=== PATIENT | female | born 1995 | race Caucasian/White ===

== ENCOUNTER 2023-11-30 09:45 | Emergency (ER) | payer SELFPAY ==
--- NOTE | 2023-11-30 10:00 | HMH.EDGENADL ---
Discharge Plan Disposition Patient Disposition: Home, Self-Care Condition: Good Prescriptions Prescriptions: New oxycodone-acetaminophen [Percocet] 5-325 mg tablet 1 tab PO Q6H PRN (Reason: pain) 3 Days Qty: 12 0RF ondansetron 4 mg tablet,disintegrating 4 mg PO Q6H PRN (Reason: nausea and vomiting) 4 Days Qty: 16 0RF Referrals Follow up/Referrals: Pk Ervin MD [Staff Physician] - See instructions (Patient to follow-up on 12/07/2023) Evan Lugo [Primary Care Provider] - See instructions Activity Restrictions/Add. Instructions Additional Instructions/Restrictions: You have been evaluated in the ED for your complaints. You may follow-up with your PCP in the next 3 to 5 days. Please return to ED for any new or worsening symptoms. You will follow-up with general surgery a week from today on 12/07/2023. I have written for Percocet to assist with pain at home and Zofran for nausea and vomiting however if your symptoms worsen please return to ED for further management. Please eat a bland diet over the next several days. Clinical Impressions Clinical Impression: Cholelithiasis Instructions Patient Instructions: DI for Acute Abdominal Pain Discharge ED Provider: Ramez Marvin Adult HPI General Chief complaint: Abdominal Pain Stated complaint: gall bladder attack Time Seen by Provider: 11/30/23 09:59 History of Present Illness HPI narrative: 28-year-old female with reported medical history significant for gallbladder sludge presents today for evaluation concerning right upper quadrant and epigastric pain onset around 4 AM this morning. Patient states that her pain feels very similar to her past gallbladder attacks. She states that she had a cooked meal which she had not had in quite a while and it consisted of pork chops. She denies having any nausea, vomiting, fevers, chills, chest pain, shortness of breath, dysuria or hematuria. She has no further complaints at this time. Related Data Previous Rx's Medication Instructions Recorded ondansetron 4 mg disintegrating 4 mg PO Q6H PRN nausea and 11/30/23 tablet vomiting 4 days #16 tabs oxycodone-acetaminophen 5 mg-325 1 tab PO Q6H PRN pain 3 days #12 11/30/23 mg tablet (Percocet) tabs Allergies Allergy/AdvReac Type Severity Reaction Status Date / Time No Known Allergies Allergy Verified 11/30/23 10:09 [facility] Disclaimer: The information contained in this section may have been updated after the patient was seen, as this information can be updated by other users. Social History (Updated 11/30/23 @ 12:13 by Pk Ervin MD) Smoking Status: Current every day smoker alcohol intake: never current occupational status: employed Travel in the last 8 weeks: None ROS Obtained: Yes All systems reviewed & no additional complaints except as documented Physical Exam General General appearance: alert and in no apparent distress Head Head exam: atraumatic and normocephalic Eye Eye exam: Present normal appearance, PERRL and EOMI ENT ENT exam: Present normal oropharynx and mucous membranes moist Neck Neck exam: Present full ROM; Absent meningismus Respiratory Respiratory exam: Absent respiratory distress, wheezes, stridor or accessory muscle use Cardiovascular Cardiovascular exam: Present normal rhythm Abdominal Exam Abdominal exam: Present soft and tenderness; Absent distention, guarding, rebound or rigidity Abdominal tenderness: Present RUQ and epigastrium Neurological Exam Neurological exam: Present alert, oriented X3 and CN II-XII intact; Absent motor sensory deficit Psychiatric Psychiatric exam: Present normal affect and normal mood Skin Skin exam: Present warm and dry Medical Decision Making Medical Records Medical records reviewed: Yes I reviewed the patient's medical records. Gustavo Inquiry Pt receiving controlled substance: No Gustavo was queried for this patient: No Vital Signs: 11/30/23 10:01 11/30/23 10:16 11/30/23 11:30 Temperature 98.5 F Temperature Source Oral Pulse Rate 66 64 Pulse Rate [Left] 75 Respiratory Rate 22 Blood Pressure 133/95 H Blood Pressure [Right Arm] 159/113 H Blood Pressure Mean 108 Blood Pressure Mean [Right Arm] 128 Blood Pressure Source [Right Arm] Automatic Cuff Blood Pressure Position [Right Arm] Sitting 02 Sat by Pulse Oximetry 99 99 97 Oxygen Delivery Method Room Air Room Air Room Air Lab Data Lab Results 11/30/23 09:58: WBC 8.4, RBC 4.83, Hgb 15.5, Hct 44.4, MCV 92.1, MCH 32.0 H, MCHC 34.8, RDW 14.1, Plt Count 283, MPV 7.6, Neut % (Auto) 64.5, Lymph % (Auto) 22.8, [place] % (Auto) 6.6, Eos % (Auto) 4.7, Baso % (Auto) 1.4, Neut # (Auto) 5.4, Lymph # (Auto) 1.9, [place] # (Auto) 0.6, Eos # (Auto) 0.4, Baso # (Auto) 0.1, Sodium 140, Potassium 3.8, Chloride 109 H, Carbon Dioxide 25, Anion Gap 9.8, BUN 11, Creatinine 0.70, Estimated Creat Clear 188, Estimated GFR 100, Est GFR ( Amer) 121, Glucose 111 H, Calcium 8.9, Total Bilirubin 0.3, AST 26, ALT 22, Alkaline Phosphatase 79, Total Protein 7.4, Albumin 4.0, Globulin 3.4 H, Albumin/Globulin Ratio 1.2, Lipase 139, Serum HCG, Qual Negative 11/30/23 09:58 11/30/23 09:58 Orders (Tests/Meds): ED MEDICATIONS Discontinued Medications Generic Name Dose Route Start Last Admin Trade Name Freq PRN Reason Stop Dose Admin Lactated Ringer's 500 mls @ 999 mls/hr 11/30/23 10:42 11/30/23 10:52 Lactated Ringer's 1000 Ml Bag IV 11/30/23 11:12 Not Given .Q31M ONE Lactated Ringer's 1,000 mls @ 999 mls/hr 11/30/23 10:50 11/30/23 10:52 Lactated Ringer's 1000 Ml Bag IV 11/30/23 11:50 999 mls/hr .Q1H1M ONE Administration Iopamidol 75 ml 11/30/23 11:14 11/30/23 11:14 Iopamidol-370 (76%);100ml Bottle IV 11/30/23 11:15 75 ml ONCE ONE Administration Morphine Sulfate 4 mg 11/30/23 10:03 11/30/23 10:13 Morphine 4mg/Ml Syringe IV 11/30/23 10:04 4 mg ONCE ONE Administration Morphine Sulfate 4 mg 11/30/23 10:42 11/30/23 10:52 Morphine 10mg/Ml Syringe IV 11/30/23 10:43 Not Given ONCE ONE Morphine Sulfate 4 mg 11/30/23 10:50 11/30/23 10:48 Morphine 4mg/Ml Syringe IV 11/30/23 10:51 4 mg ONCE ONE Administration Ondansetron HCl 4 mg 11/30/23 10:03 11/30/23 10:13 Ondansetron 4mg/2ml Vial IV 11/30/23 10:04 4 mg ONCE ONE Administration Ondansetron HCl 4 mg 11/30/23 10:40 11/30/23 10:44 Ondansetron 4mg/2ml Vial IV 11/30/23 10:41 4 mg ONCE ONE Administration Sodium Chloride 10 ml 11/30/23 11:14 11/30/23 11:14 Sodium Chloride 0.9% 10ml Syr (Rad Only) IV 11/30/23 11:15 10 ml ONCE ONE Administration ORDERS Category Date Time Status CT abdomen pelvis w con Stat Cat Scan 11/30/23 10:40 Completed US gallbladder Stat Exams 11/30/23 10:04 Completed CBC w/Auto Diff [Complete Blood Count Auto Diff] Stat Lab 11/30/23 09:58 Completed CMP [Comprehensive Metabolic Panel] Stat Lab 11/30/23 09:58 Completed Lactic Acid Stat Lab 11/30/23 10:03 Ordered Lipase Stat Lab 11/30/23 09:58 Completed Serum [HCG Qualitative, Serum] Stat Lab 11/30/23 09:58 Completed Medical Decision Narrative: 28-year-old female with reported medical history significant for gallbladder sludge presents today for evaluation concerning right upper quadrant and epigastric pain onset around 4 AM this morning. Patient states that her pain feels very similar to her past gallbladder attacks. She states that she had a cooked meal which she had not had in quite a while and it consisted of pork chops. On assessment she was medically stable and in no acute distress. Afebrile. Her chest was clear to station bilaterally. Abdomen was soft and nondistended however she did have tenderness in the right upper quadrant region more focally in the epigastric region. No tenderness in other quadrants. She did appear uncomfortable stating that her pain was the same as her previous gallbladder attacks. Differential diagnoses include not limited to cholecystitis, cholelithiasis, gastritis gastroenteritis, pancreatitis, among others. No elevation in WBC at 8.4. No transaminitis with AST of 26, ALT of 22. Alkaline phosphatase of 79. Lipase 139. Total bilirubin of 0.3. Negative screen. Gallbladder ultrasound showed gallbladder stones with wall thickening and small amount of pericholecystic fluid. Patient also had a CT scan that also revealed gallbladder wall thickening with probable pericholecystic fluid and mild biliary ductal dilatation. She also had a 3.3 cm right ovarian cyst and a small right renal stone. Patient was given IV fluids and pain management and antiemetics while in the ED. I did consult with general surgery who came to the ED to evaluate patient and recommended symptom control and follow-up in clinic in the event that patient's symptoms are able to be controlled. On reassessment patient remained helically stable and in no acute distress. Her pain was well-controlled and she was resting well on stretcher. I discussed ED workup and results as well as current plan. Will send her home with Percparminder and Rohit for symptom management. Will also send with referral to general surgery in 1 week. She verbalized understanding and agreed with plan. Provided with return ED precautions. Subsequently discharged home in stable in no distress. She was able to tolerate oral intake. Critical Care Critical Care Time Critical Care Time: No
[2023-11-30 10:01] VITALS: BP 159/113; PULSE 75; RESP 22; TEMP 36.9; O2SAT 99; BMI 38.9
--- NOTE | 2023-11-30 10:04 | US_ITS ---
FINAL REPORT CLINICAL HISTORY: RUQ/epigastric pain FINDINGS: RIGHT UPPER QUADRANT ULTRASOUND Sonographic images of the right upper quadrant were obtained. The pancreas is partially obscured.The liver has an unremarkable appearance. There is borderline gallbladder wall thickening. A stone is seen in the neck of the gallbladder with a questionable small amount of pericholecystic fluid, cholecystitis is not excluded. Limited images of the right kidney are normal. IMPRESSION: Gallbladder stone with wall thickening and a small amount of pericholecystic fluid, cholecystitis is not excluded. Nuclear medicine hepatobiliary scan may be helpful. Reviewed, Interpreted and Dictated by Pk Roberts III, MD Transcribed by Adrianna Gresham Authenticated and [facility]
--- NOTE | 2023-11-30 10:06 | PC.NURSE ---
I notified radiology that Dr. Marvin placed an order for a gallbladder US. pts had a very minimal amount of coke to drink this am and has not eaten since last night.
[2023-11-30 10:12] LABS: Basophils # 0.1 K/mm3 (0-0.2); Basophils % 1.4 % (0.1-2.0); Chloride 109 mmol/L (98-107); Eosinophils # 0.4 K/mm3 (0.0-0.4); Eosinophils % 4.7 % (0.1-12.0); Hematocrit 44.4 % (37.0-47.0); Hemoglobin 15.5 g/dL (12.2-16.2); Lymphocytes # 1.9 K/mm3 (0.7-4.5); Lymphocytes % 22.8 % (10-50); Mean Corpuscular HGB Conc 34.8 g/dL (31.8-35.4); Mean Corpuscular Volume 92.1 fl (81-99); Mean Platelet Volume 7.6 fl (7.4-10.4); Monocytes # 0.6 K/mm3 (0.1-1.0); Monocytes % 6.6 % (1.7-9.3); Neutrophils # 5.4 K/mm3 (1.8-7.8); Neutrophils % 64.5 % (37.0-80.0); Platelet Count 283 K/mm3 (142-424); Potassium 3.8 mmoL/L (3.5-5.1); Red Blood Count 4.83 M/mm3 (4.20-5.40); Red Cell Distribution Width 14.1 % (11.5-17.5); Sodium 140 mmol/L (136-145); White Blood Count 8.4 K/mm3 (4.8-10.8)
[2023-11-30] MEDS: ONDANSETRON 4MG/2ML VIAL 4 MG IV ×2 (10:13→10:44)
[2023-11-30] MEDS: MORPHINE 4MG/ML SYRINGE 4 MG IV ×2 (10:13→10:48)
[2023-11-30 10:14] LABS: Alanine Aminotransferase 22 U/L (12-78); Aspartate Amino Transferase 26 U/L (14-36); Blood Urea Nitrogen 11 mg/dl (7-17); Creatinine Clearance Estimated 188 mL/min (50-200); Estimated Glomerular Filt Rate 100 ml/min (>60); GFR (African American) 121 ML/MIN (>60)
[2023-11-30 10:15] LABS: Albumin/Globulin Ratio 1.2 (1.1-1.8); Alkaline Phosphatase 79 U/L (38-126); Anion Gap 9.8 mEq/L (5-15); Bilirubin,Total 0.3 mg/dl (0.2-1.3); Calcium 8.9 mg/dl (8.4-10.2); Carbon Dioxide 25 mmol/L (22.0-30.0); Globulin 3.4 g/dL (1.3-3.2); Glucose 111 mg/dl (74-100); Lipase 139 U/L (23-300); Total Protein,Serum 7.4 g/dl (6.3-8.2)
[2023-11-30 10:16] VITALS: BP 133/95; PULSE 66; O2SAT 99
[2023-11-30 10:22] LABS: HCG Qualitative, Serum Negative (Negative)
--- NOTE | 2023-11-30 10:40 | CT_ITS ---
FINAL REPORT CLINICAL HISTORY: epigastric pain, N/v COMPARISON: Gallbladder ultrasound obtained same day FINDINGS: CT OF THE ABDOMEN AND PELVIS WITH CONTRAST Axial CT images of the abdomen and pelvis were obtained after the administration of IV contrast. Coronal reformatted images were also obtained and reviewed.This study was performed with techniques to keep radiation doses as low as reasonably achievable (ALARA). Individualized dose reduction techniques using automated exposure control or adjustment of mA and/or kV according to the patient''s size were employed. Abdomen: The lung bases are clear. The heart is normal in size. The liver has an unremarkable appearance, without evidence of mass. There is mild biliary ductal dilatation. There is gallbladder wall thickening with probable pericholecystic fluid. Stone seen in the neck of the gallbladder on ultrasound is not well-visualized on this exam. The spleen is unremarkable. No adrenal mass is present. The pancreas has an unremarkable appearance. There is a less than 1 cm left renal cyst with no follow-up recommended. There is a probable less than 3 mm right renal stone. The aorta is normal in caliber. There is no free fluid or adenopathy. No mass or abnormal fluid collection is seen. Pelvis: The appendix normal. The urinary bladder is unremarkable. No inflammatory process is seen. There is a 3.3 cm right ovarian cyst. There is no evidence of bowel obstruction. IMPRESSION: Gallbladder wall thickening with probable pericholecystic fluid and mild biliary ductal dilatation. 3.3 cm right ovarian cyst. Probable less than 3 mm right renal stone. Reviewed, Interpreted and Dictated by Pk Roberts III, MD Transcribed by Ligia Garcia Authenticated and [facility]
[2023-11-30] MEDS: LACTATED RINGERS 1000ML 1,000 ML 999 ML IV (10:52)
[2023-11-30] MEDS: SODIUM CHLORIDE 0.9% 10ML SYR (RAD ONLY) 10 ML IV (11:14)
[2023-11-30] MEDS: IOPAMIDOL-370 (76%);100ML BOTTLE 75 ML IV (11:14)
--- NOTE | 2023-11-30 11:18 | PC.NURSE ---
pt returned from US with flow trader via wheelchair
--- NOTE | 2023-11-30 11:23 | P.CONS_ITS ---
History of Present Illness *Admission Date: 11/30/23 *Reason for visit:: Gallbladder *History of present illness: Patient is a 28-year-old female who presents to the emergency department with right upper quadrant and epigastric pain occurring early this morning after she had eaten pork chops yesterday evening. She apparently has had previous gallbladder attacks and has been seen at outside facility and had been previously diagnosed with gallbladder sludge. She states that her current symptoms are similar to when she has had previous gallbladder attacks. She was noted to have some tenderness in the right upper quadrant on examination. Evaluation in the emergency department revealed normal white blood cell count and unremarkable liver function test. She underwent gallbladder ultrasound which preliminarily reveals a 4 to 5 mm common bile duct, small amount of pericholecystic fluid, stone at the neck of the gallbladder, fatty liver. [facility] Disclaimer: The information contained in this section may have been updated after the patient was seen, as this information can be updated by other users. Social History Smoking Status: Current every day smoker Travel in the last 8 weeks: None Meds Home Medications and Allergies Home Medications Medication Instructions Recorded Confirmed Type No Known Home Medications 11/30/23 11/30/23 History New Prescriptions to Start Prescriptions: Allergies Allergy/AdvReac Type Severity Reaction Status Date / Time No Known Allergies Allergy Verified 11/30/23 10:09 Exam (Inpt) Vital signs and Labs for Last 24 Hours: Temp Pulse Resp BP Pulse Ox O2 Del Method 98.5 F 66 22 133/95 H 99 Room Air 11/30/23 10:01 11/30/23 10:16 11/30/23 10:01 11/30/23 10:16 11/30/23 10:16 11/30/23 10:16 Laboratory Results - last 24 hr 11/30/23 09:58: WBC 8.4, RBC 4.83, Hgb 15.5, Hct 44.4, MCV 92.1, MCH 32.0 H, MCHC 34.8, RDW 14.1, Plt Count 283, MPV 7.6, Neut % (Auto) 64.5, Lymph % (Auto) 22.8, [place] % (Auto) 6.6, Eos % (Auto) 4.7, Baso % (Auto) 1.4, Neut # (Auto) 5.4, Lymph # (Auto) 1.9, [place] # (Auto) 0.6, Eos # (Auto) 0.4, Baso # (Auto) 0.1, Sodium 140, Potassium 3.8, Chloride 109 H, Carbon Dioxide 25, Anion Gap 9.8, BUN 11, Creatinine 0.70, Estimated Creat Clear 188, Estimated GFR 100, Est GFR ( Amer) 121, Glucose 111 H, Calcium 8.9, Total Bilirubin 0.3, AST 26, ALT 22, Alkaline Phosphatase 79, Total Protein 7.4, Albumin 4.0, Globulin 3.4 H, Albumin/Globulin Ratio 1.2, Lipase 139, Serum HCG, Qual Negative I & O for Labs for Last 24 Hours: Intake & Output 11/27/23 11/28/23 11/29/23 11/30/23 11:59 11:59 11:59 11:59 Weight 220 lb Constitutional: no acute distress GI: Present soft Comments:: Mild epigastric tenderness Results Labs 11/30/23 09:58 11/30/23 09:58 Labs: Laboratory Results - last 24 hr 11/30/23 09:58: WBC 8.4, RBC 4.83, Hgb 15.5, Hct 44.4, MCV 92.1, MCH 32.0 H, MCHC 34.8, RDW 14.1, Plt Count 283, MPV 7.6, Neut % (Auto) 64.5, Lymph % (Auto) 22.8, [place] % (Auto) 6.6, Eos % (Auto) 4.7, Baso % (Auto) 1.4, Neut # (Auto) 5.4, Lymph # (Auto) 1.9, [place] # (Auto) 0.6, Eos # (Auto) 0.4, Baso # (Auto) 0.1, Sodium 140, Potassium 3.8, Chloride 109 H, Carbon Dioxide 25, Anion Gap 9.8, BUN 11, Creatinine 0.70, Estimated Creat Clear 188, Estimated GFR 100, Est GFR ( Amer) 121, Glucose 111 H, Calcium 8.9, Total Bilirubin 0.3, AST 26, ALT 22, Alkaline Phosphatase 79, Total Protein 7.4, Albumin 4.0, Globulin 3.4 H, Albumin/Globulin Ratio 1.2, Lipase 139, Serum HCG, Qual Negative Assessment and Plan *Assessment and plan (1) Gallstones: Status: Acute Category: Medical Code(s): K80.20 - Calculus of gallbladder without cholecystitis without obstruction Plan Patient has findings and presentation consistent with acute biliary colic without acute cholecystitis. Her symptoms have shown improvement during her ER assessment. She may be able to be managed as an outpatient with a early outpatient follow-up for scheduling of cholecystectomy.
[2023-11-30 11:30] VITALS: PULSE 64; O2SAT 97
--- NOTE | 2023-11-30 11:34 | PC.NURSE ---
Dr. Ervin at BS for pt consult
--- NOTE | 2023-11-30 11:38 | PC.NURSE ---
dr elaine at bedside
[2023-11-30 14:04] VITALS: BP 130/99; PULSE 70; RESP 16; TEMP 36.9
[2023-11-30 14:10] VITALS: BP 130/99; PULSE 67; RESP 13; TEMP 36.6; O2SAT 97
== END 2023-11-30 14:06 | disposition home or self-care (01) ==
PROVIDERS: Emergency Provider Emergency Medicine; PCP Pediatrics
DX: K80.20 Calculus of gallbladder without cholecystitis without obstruction (principal); R10.11 Right upper quadrant pain; R10.13 Epigastric pain; F17.210 Nicotine dependence, cigarettes, uncomplicated
CPT/HCPCS: 74177; 76705; 80053; 83690; 84703; 85025; 96361; 96374; 96375; 96376; 99285; J2270; J2405; J7120; Q9967